=== PATIENT | male | born 1965 | race Caucasian/White ===

== ENCOUNTER 2020-05-09 22:38 | Observation (INO) | payer OTHER ==
[~2020-05-09] VITALS: Ht 177.8 cm; Wt 81.4 kg
[2020-05-09 23:02] VITALS: BP 119/66
[2020-05-09 23:53] LABS: BASO % 0.5 % (0.0-1.0); EOS # 0.2 10*3/uL (0.0-0.4); EOS % 3.4 % (1.0-4.0); HEMATOCRIT 36.5 % (42.0-52.0); LYMPH # 1.9 10*3/uL (1.3-4.4); LYMPH % 30.2 % (27.0-41.0); MEAN CELL VOLUME 92.2 fl (80.0-94.0); MEAN CORPUSCULAR HGB 30.3 pg (27.0-31.0); MEAN CORPUSCULAR HGB CONC 32.9 g/dl (33.0-37.0); MEAN PLATELET VOLUME 10.2 fl (9.6-12.3); MONO # 0.7 10*3/uL (0.1-1.0); MONO % 11.3 % (3.0-9.0); NEUT # 3.5 10*3/uL (2.3-7.9); NEUT % 54.4 % (47.0-73.0); PLATELET COUNT AUTOMATED 309 10*3/uL (130-400); RED BLOOD COUNT 3.96 10*6/uL (4.50-5.90); WHITE BLOOD COUNT 6.4 10*3/uL (4.8-10.8)
[2020-05-10 00:05] VITALS: BP 131/76
--- NOTE | 2020-05-10 00:11 | NUR ---
THE PATIENT IS RESTING ON THE BED. VITALS WERE UPDATED. CALL LIGHT IS BESIDE THE PATIENT ON THE BED.
[2020-05-10 00:19] LABS: ALBUMIN 3.3 gm/dl (3.1-4.5); ALKALINE PHOSPHATASE 68 U/L (45-117); BUN 19 mg/dl (7-24); CHLORIDE 105 mmol/L (98-107); CREATININE 1.37 mg/dL (0.70-1.30); SGOT/AST 14 IU/L (3-35); SGPT/ALT 24 U/L (12-78); SODIUM 139 mmol/L (136-145); TOTAL PROTEIN 6.6 gm/dL (6.4-8.2); TROPONIN I < 0.015 ng/ml (<0.045)
--- NOTE | 2020-05-10 02:07 | NUR ---
THE IV INFILTRATED AND THE FLUIDS WERE STOPPED
--- NOTE | 2020-05-10 02:14 | NUR ---
I WRAPPED A WARM TOWEL AROUND THE SITE OF IV INFILTRATION.
[2020-05-10 02:35] VITALS: BP 106/70
[2020-05-10 03:48] VITALS: BP 124/73
--- NOTE | 2020-05-10 03:49 | NUR ---
THE PATIENT IS SITTING ON THE BED. 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 CALL LIGHT IS BESIDE THE PATIENT
--- NOTE | 2020-05-10 04:58 | NUR ---
A 54, admitted to , under the services of GIAN Garcia DO with a diagnosis of ANGINA. Chief complaint is CHEST PAIN. Patient arrived via wheel chair from [place]. Monitor applied. Initial assessment completed. Vital signs taken and recorded. GIAN GARCIA DO notified of admission to the unit. Orders received. See assessment for past medical history, medications and allergies. Patient and/or family oriented to unit. visitation policy reviewed. Clothing/patient valuable form completed. OMI STACK
[2020-05-10 05:00] VITALS: BP 135/66
[2020-05-10] MEDS ORDERED: PRAVACHOL20 MG PO (05:07)
--- NOTE | 2020-05-10 05:07 | NUR ---
MED REC COMPLETED WITH PATIENT ALERT AND ORIENTED TO PERSON PLACE AND TIME
[2020-05-10 05:26] LABS: BUN 16 mg/dl (7-24); CHLORIDE 108 mmol/L (98-107); CHOLESTEROL 179 mg/dL (<200); CREATININE 1.15 mg/dL (0.70-1.30); HDL CHOLESTEROL 42 mg/dl (40-60); LDL CHOLESTEROL 123 mg/dL (9-159); SODIUM 140 mmol/L (136-145); TRIGLYCERIDES 72 mg/dl (<150); VLDL CHOLESTEROL 14 mg/dL (6-40)
[2020-05-10 06:31] LABS: BASO % 0.5 % (0.0-1.0); EOS # 0.1 10*3/uL (0.0-0.4); EOS % 2.4 % (1.0-4.0); HEMATOCRIT 39.3 % (42.0-52.0); LYMPH # 1.4 10*3/uL (1.3-4.4); LYMPH % 23.4 % (27.0-41.0); MEAN CELL VOLUME 91.2 fl (80.0-94.0); MEAN CORPUSCULAR HGB 29.5 pg (27.0-31.0); MEAN CORPUSCULAR HGB CONC 32.3 g/dl (33.0-37.0); MEAN PLATELET VOLUME 10.9 fl (9.6-12.3); MONO # 0.5 10*3/uL (0.1-1.0); MONO % 8.9 % (3.0-9.0); NEUT # 3.8 10*3/uL (2.3-7.9); NEUT % 64.5 % (47.0-73.0); PLATELET COUNT AUTOMATED 329 10*3/uL (130-400); RED BLOOD COUNT 4.31 10*6/uL (4.50-5.90); WHITE BLOOD COUNT 5.8 10*3/uL (4.8-10.8)
--- NOTE | 2020-05-10 07:30 | NUR ---
PT RESTING IN BED. RESPS EASY AND NON LABORED. NO S/S OF DISTRESS NOTED. VSS. WHITE BOARD UPDATED. POC DISCUSSED W PT. A/O X3. DENIES CHEST PAIN/PRESSURE. WILL CONTINUE TO MONITOR. CALL LIGHT WITHIN REACH.
[2020-05-10 08:00] VITALS: BP 127/67
--- NOTE | 2020-05-10 10:56 | NUR ---
Discharge instructions reviewed with patient/family. Patient receptive and verbalizes understanding. Follow-up care arranged. Written instructions given to patient/family. HISSOM,NARCISA The Discharge Plan/Instructions have been completed.
== END 2020-05-10 10:56 | disposition home or self-care (01) ==
LOC: ED 22:38 → EDHOLD 05-10 03:55 → 5E 05-10 04:52
PROVIDERS: Emergency Medicine; Student in an Organized Health Care Education/Training Program; ADMIT Internal Medicine; ATTEND Internal Medicine
DX: R07.89 Other chest pain (principal); E78.5 Hyperlipidemia, unspecified; D64.9 Anemia, unspecified; R73.03 Prediabetes; E55.9 Vitamin D deficiency, unspecified; Z98.890 Other specified postprocedural states; Z20.828 Contact with and (suspected) exposure to other viral communicable diseases